=== PATIENT | female | born 1940 | race Caucasian/White ===

== ENCOUNTER → 2019-06-06 | Outpatient (CLI) | payer MEDICARE, SELFPAY ==
[2019-06-06 15:40] LABS: EXAGEN MAILED SPECIMEN
[2019-06-06 17:33] LABS: Absolute Lymphocyte Count 1.64 X10^3/uL (0.83-4.51); Absolute Neutrophil Count 5.1 X10^3/uL (2.0-7.7); Basophil# 0.02 X10^3/uL; Basophil% 0.3 % (0-1); Eosinophil# 0.04 X10^3/uL; Eosinophils% 0.5 % (0-5); Hematocrit 42.3 % (37-47); Hemoglobin 13.8 g/dL (12.0-15.0); Lymphocyte # 1.64 X10^3/ul (4.0); Lymphocyte % 22.5 % (19-41); Mean Corp Hgb Conc 32.6 g/dL (32-36); Mean Corpuscular Hgb 29.1 pg (27.0-32.0); Mean Corpuscular Volume 89.2 fL (81-99); Mean Platelet Vol. 10.4 fl (6.2-12.0); Monocyte% 6.9 % (0-10); NRBC Flagged by Analyzer 0 % (0-5); Neutrophil # 5.07 X10^3/uL (2.7-7.7); Neutrophil % 69.7 % (47-70); Platelet Count 223 K/mm3 (150-450); RBC Distribution Width CV 13.2 % (11.6-14.6); RBC Distribution Width SD 43.4 fl (35.1-43.9); Red Blood Count 4.74 M/mm3 (4.2-5.4); White Blood Count 7.3 K/mm3 (4.4-11.0)
[2019-06-06 17:35] LABS: Color, Urine Yellow (Yellow); Glucose, Dipstick Normal (Normal); Ketone-Dipstick 5 mg/dl (Negative); Leukocyte Esterase-Dipstick Negative /ul (Negative); Nitrite-Dipstick Negative (Negative); Occult Blood-Urine Negative /ul (Negative); Protein-Dipstick Negative (Negative); Urine Bilirubin Dipstick Negative (Negative); Urine Clarity Clear (Clear); Urine Urobilinogen Normal (Normal); Urine pH 6.5 (5.0 - 8.0)
[2019-06-06 17:51] LABS: ALB/GLOB Ratio 1.2 RATIO (0.9-2.4); AST(SGOT) 20 U/L (15-37); Alanine Aminotransfer ALT/SGPT 28 U/L (13-56); Albumin, Serum 4.1 g/dL (3.2-5.0); Alkaline Phosphatase 81 U/L (45-117); Anion Gap 6 (5-15); BUN 15 mg/dL (7-18); BUN/Creat Ratio 21.9 RATIO (10-20); CRP 2.96 mg/L (0.0-3.0); Calcium,Total 9.7 mg/dL (8.5-10.1); Chloride 104 mmol/L (98-107); Creatinine, Serum 0.68 mg/dL (0.55-1.02); EST Glomerular Filtration Rate 88 mL/min (>60); Est Glom Filt Rate - Afr Amer 107 mL/min (>60); Globulin 3.5 g/dL (2.2-4.2); Glucose 104 mg/dL (74-106); Protein, Total 7.6 g/dL (6.4-8.2); Sodium Level 137 mmol/L (136-145)
[2019-06-06 17:54] LABS: Erythrocyte Sedimentation Rate 21 mm/hr (0-30)
[2019-06-06 17:57] LABS: Protein, Urine (Random) < 6.0 mg/dL (<11.9)
[2019-06-07 11:02] LABS: Hepatitis B Surface Antibody Non-Reactive; Hepatitis B Surface Antigen Non-Reactive (Nonreactive); Hepatitis C Antibody Non-Reactive (Nonreactive)
== END | disposition home or self-care (01) ==
PROVIDERS: Referring Provider Internal Medicine Rheumatology; Visit Provider Internal Medicine Rheumatology
DX: M06.4 Inflammatory polyarthropathy (principal); R76.8 Other specified abnormal immunological findings in serum; M79.7 Fibromyalgia; M18.12 Unilateral primary osteoarthritis of first carpometacarpal joint, left hand; M19.041 Primary osteoarthritis, right hand; H40.9 Unspecified glaucoma; I10 Essential (primary) hypertension; E78.5 Hyperlipidemia, unspecified
CPT/HCPCS: 36415; 80053; 81002; 82570; 84156; 85025; 85652; 86140; 86706; 86803; 87340

== ENCOUNTER 2020-06-21 17:41 | Outpatient (RCR) | payer MEDICARE, SELFPAY ==
[2020-06-21] MEDS: COVID-19 VACC, MRNA(PFIZER)/PF 30 MCG/0.3 ML SYRINGE IM (10:21)
[2020-07-12] MEDS: COVID-19 VACC, MRNA(PFIZER)/PF 30 MCG/0.3 ML SYRINGE IM (10:10)
== END 2020-06-21 23:59 ==
LOC: IMMUN 17:41
PROVIDERS: Visit Provider Family Medicine
DX: Z23 Encounter for immunization (principal)
CPT/HCPCS: 0001A; 0002A

== ENCOUNTER → 2024-01-25 | Outpatient (CLI) | payer MEDICARE, SELFPAY ==
--- NOTE | 2024-01-25 10:56 | ECHOD_ITS ---
Reason For Study: AORTIC REGURGITATION Procedure This was a 2D Doppler, Color Flow transthoracic echocardiogram. Exam performed in department. Left Ventricle Normal size and thickness. The left ventricular ejection fraction is 70 %. Normal diastology for age. Right Ventricle Normal right ventricle. Atria The left and right atria are normal. Mitral Valve Mild (1+) mitral valve insufficiency. Tricuspid Valve Trivial tricuspid valve insufficiency. Normal pulmonary artery pressure. Aortic Valve Trisinus/trileaflet aortic valve. Trivial aortic valve insufficiency. Pulmonic Valve The pulmonic valve is not well visualized. Trivial pulmonic valve insufficiency. Great Vessels Normal sized aortic root. Pericardium/Pleural No pericardial effusion. MMode/2D Measurements & Calculations LVIDd: 3.4 cm IVSd: 1.1 cm LVOT diam: 2.0 cm LVIDs: 2.5 cm LVPWd: 0.91 cm LVOT area: 3.0 cm2 RVDd: 2.4 cm FS: 28.2 % asc Aorta Diam: 3.4 cm LAV(MOD-bp): 18.9 ml LVAd ap4: 16.6 cm2 LAV(MOD-bp) Indexed: 12.1 ml/m2 LVLd ap4: 7.1 cm LAV(MOD-sp2): 23.0 ml EDV(MOD-sp4): 32.2 ml LAV(MOD-sp4): 15.1 ml EDV(sp4-el): 32.8 ml LVAs ap4: 7.7 cm2 LVLs ap4: 5.8 cm ESV(MOD-sp4): 9.0 ml ESV(sp4-el): 8.7 ml EF(MOD-sp4): 72.1 % EF(sp4-el): 73.5 % LVAd ap2: 14.8 cm2 SV(MOD-sp4): 23.2 ml SV(MOD-sp2): 17.7 ml LVLd ap2: 6.5 cm EDV(MOD-sp2): 28.2 ml EDV(sp2-el): 28.8 ml LVAs ap2: 8.5 cm2 LVLs ap2: 5.8 cm ESV(MOD-sp2): 10.5 ml ESV(sp2-el): 10.6 ml EF(MOD-sp2): 62.9 % SV(sp4-el): 24.1 ml Ao sinus diam: 2.[address] Junction: 2.5 cm LA dimension(2D): 2.9 cm LA A4 area: 8.9 cm2 RA A4 area: 7.8 cm2 TAPSE: 1.7 cm Time Measurements MV dec time: 0.17 sec Doppler Measurements & Calculations MV E max rajeev: 79.3 cm/sec Lat Peak E' Rajeev: 8.9 cm/sec Med Peak E' Rajeev: 8.6 cm/sec MV A max rajeev: 99.3 cm/sec E/E' lat: 9.0 E/E' med: 9.2 MV E/A: 0.80 MV dec slope: 478.9 cm/sec2 Ao V2 max: 117.8 cm/sec LV V1 max: 95.5 cm/sec Ao max P.6 mmHg LV V1 max P.6 mmHg Ao V2 mean: 84.1 cm/sec LV V1 mean P.2 mmHg Ao mean P.1 mmHg LV V1 mean: 71.5 cm/sec Ao V2 VTI: 23.8 cm LV V1 VTI: 22.0 cm AV (velocity ratio): 0.93 MARGUERITE(I,D): 2.8 cm2 MARGUERITE(V,D): 2.5 cm2 SV(LVOT): 67.0 ml PA V2 max: 91.5 cm/sec PI end-d rajeev: 84.9 cm/sec PA max PG (full): 0.46 mmHg TR max rajeev: 210.6 cm/sec TR max P.7 mmHg ECHO/Echo Complete Interpretation Summary The left ventricular ejection fraction is 70 %. Mild (1+) mitral valve insufficiency. Ordering Physician: Nikita Bernstein Referring Physician: Nikita Bernstein MD Performed By: Patricia Sorto RDCS
== END | disposition home or self-care (01) ==
LOC: CVS 10:55
PROVIDERS: Referring Provider Internal Medicine Cardiovascular Disease; Visit Provider Internal Medicine Cardiovascular Disease
DX: I35.1 Nonrheumatic aortic (valve) insufficiency (principal); R60.0 Localized edema
CPT/HCPCS: 93306

== ENCOUNTER → 2025-02-02 | Outpatient (CLI) | payer MEDICARE, SELFPAY ==
--- NOTE | 2025-02-02 10:49 | ECHOD_ITS ---
Reason For Study Reason For Study: CAD/ASHD Procedure This was a 2D Doppler, Color Flow transthoracic echocardiogram. Exam performed in department. Left Ventricle Normal size and thickness. The left ventricular ejection fraction is 65 %. Normal diastololic function. Right Ventricle Normal right ventricle. Atria The left and right atria are normal. Mitral Valve Mild-Moderate (1-2+) mitral valve insufficiency. Tricuspid Valve Mild (1+) tricuspid valve insufficiency. Normal pulmonary artery pressure. Aortic Valve Aortic sclerosis, no stenosis. Mild (1+) aortic valve insufficiency. Pulmonic Valve Trivial pulmonic valve insufficiency. Great Vessels Normal sized aortic root. Pericardium/Pleural No pericardial effusion. MMode/2D Measurements & Calculations LVIDd: 3.6 cm IVSd: 1.00 cm Ao root diam: 3.2 cm LVIDs: 2.5 cm LVPWd: 0.71 cm RVDd: 2.7 cm FS: 30.7 % LAV(MOD-bp): 23.0 ml LVAd ap4: 19.0 cm2 LVAd ap2: 18.4 cm2 LAV(MOD-bp) Indexed: 14.7 ml/m2 LVLd ap4: 6.9 cm LVLd ap2: 6.7 cm LAV(MOD-sp2): 22.5 ml EDV(MOD-sp4): 43.2 ml EDV(MOD-sp2): 42.4 ml LAV(MOD-sp4): 22.5 ml EDV(sp4-el): 44.3 ml EDV(sp2-el): 42.5 ml LVAs ap4: 10.2 cm2 LVAs ap2: 9.0 cm2 LVLs ap4: 5.6 cm LVLs ap2: 5.4 cm ESV(MOD-sp4): 16.2 ml ESV(MOD-sp2): 13.3 ml ESV(sp4-el): 15.7 ml ESV(sp2-el): 12.9 ml EF(MOD-sp4): 62.6 % EF(MOD-sp2): 68.5 % EF(sp4-el): 64.5 % SV(MOD-sp4): 27.1 ml SV(MOD-sp2): 29.0 ml SV(sp4-el): 28.6 ml SI(MOD-sp4): 17.3 ml/m2 SI(MOD-sp2): 18.6 ml/m2 LA A4 area: 10.7 cm2 LA dimension(2D): 3.0 cm RA A4 area: 10.0 cm2 TAPSE: 2.0 cm Doppler Measurements & Calculations MV E max rajeev: 95.0 cm/sec Lat Peak E' Rajeev: 7.9 cm/sec Med Peak E' Rajeev: 8.5 cm/sec MV A max rajeev: 90.6 cm/sec E/E' lat: 12.0 E/E' med: 11.2 MV E/A: 1.0 MV V2 max: 112.2 cm/sec MV P1/2t max rajeev: 118.1 cm/sec Ao V2 max: 128.3 cm/sec MV max P.0 mmHg MV P1/2t: 74.2 msec Ao max P.6 mmHg MV V2 mean: 61.9 cm/sec Ao V2 mean: 84.8 cm/sec MV mean P.8 mmHg MV dec slope: 465.9 cm/sec2 Ao mean P.3 mmHg MV V2 VTI: 32.1 cm MVA(P1/2t): 3.0 cm2 Ao V2 VTI: 32.0 cm AV (velocity ratio): 0.68 AI max rajeev: 413.1 cm/sec LV V1 max: 84.4 cm/sec MR max rajeev: 534.9 cm/sec AI max P.3 mmHg LV V1 max P.9 mmHg MR max P.5 mmHg AI dec slope: 314.7 cm/sec2 LV V1 mean P.6 mmHg MR mean rajeev: 469.3 cm/sec AI P1/2t: 384.5 msec LV V1 mean: 61.4 cm/sec MR mean P.2 mmHg LV V1 VTI: 21.9 cm MR VTI: 215.1 cm PA V2 max: 82.2 cm/sec PI end-d rajeev: 62.6 cm/sec TR max rajeev: 246.7 cm/sec PI dec slope: 123.5 cm/sec2 TR max P.4 mmHg ECHO/Echo Complete Interpretation Summary The left ventricular ejection fraction is 65 %. Mild-Moderate (1-2+) mitral valve insufficiency. Mild (1+) tricuspid valve insufficiency. Aortic sclerosis, no stenosis. Mild (1+) aortic valve insufficiency. Ordering Physician: Nikita Bernstein Referring Physician: Georgia Mensah Performed By: Tracy Mccoy RDCS, RVT
== END | disposition home or self-care (01) ==
LOC: CVS 10:49
PROVIDERS: Referring Provider Internal Medicine Cardiovascular Disease; Visit Provider Internal Medicine Cardiovascular Disease
DX: I35.1 Nonrheumatic aortic (valve) insufficiency (principal); I25.10 Atherosclerotic heart disease of native coronary artery without angina pectoris
CPT/HCPCS: 93306